=== PATIENT | male | born 1985 | race Two or more races ===

== ENCOUNTER 2025-01-22 13:40 | Emergency (ER) | payer SELFPAY ==
[~2025-01-22 13:40] MED LIST: ALBU8.5H4 IH
== END 2025-01-22 14:19 | disposition left against medical advice (07) ==
LOC: ER 13:42
DX: F43.0 Acute stress reaction (principal); F41.8 Other specified anxiety disorders; E11.9 Type 2 diabetes mellitus without complications; J45.909 Unspecified asthma, uncomplicated